=== PATIENT | male | born 1975 | race Caucasian/White ===

== ENCOUNTER 2017-03-14 12:20 | Emergency (ER) | payer SELFPAY ==
[~2017-03-14] VITALS: Wt 107.5 kg
[~2017-03-14 12:20] MED LIST: FLEXERIL10 MG PO; LISINOPRIL5 MG PO; MOTRIN800 MG PO; Motrin,Rufen800 MG PO; NKHM; NORFLEX100 MG PO; PREDNISONE10 MG PO; ULTRAM50 MG PO; VICODIN ES 7501 TAB PO
[2017-03-14] MEDS ORDERED: BACTRIM DS 8001 TA1 PO (13:06)
[2017-03-14] MEDS ORDERED: CEPHALEXIN500 M1 PO (13:06)
[2017-03-14] MEDS ORDERED: NORCO 5-325 TA1 EACH PO (13:06)
[2017-03-14] MEDS ORDERED: NAPROSYN500 MG PO (13:06)
== END 2017-03-14 13:25 | disposition home or self-care (01) ==
LOC: ED 12:20
DX: L02.411 Cutaneous abscess of right axilla (principal); Z98.890 Other specified postprocedural states; Z79.899 Other long term (current) drug therapy

== ENCOUNTER 2017-03-16 13:59 | Emergency (ER) | payer SELFPAY ==
[~2017-03-16] VITALS: Ht 180.3 cm; Wt 104.3 kg
[~2017-03-16 13:59] MED LIST changes: +BACTRIM DS 8001 TA1 PO; +CEPHALEXIN500 M1 PO; +NAPROSYN500 MG PO; +NORCO 5-325 TA1 EACH PO
== END 2017-03-16 15:35 | disposition home or self-care (01) ==
LOC: ED 13:59
DX: Z48.00 Encounter for change or removal of nonsurgical wound dressing (principal); L02.411 Cutaneous abscess of right axilla

== ENCOUNTER 2018-01-10 21:12 | Emergency (ER) | payer SELFPAY ==
[~2018-01-10] VITALS: Ht 180.3 cm; Wt 108.9 kg
[2018-01-10] MEDS ORDERED: MEDROL DOSEPAK4 MG PO (22:49)
[2018-01-10] MEDS ORDERED: CYCLOBENZAPRINE10 MG PO (22:49)
[2018-01-10] MEDS ORDERED: NAPROSYN500 MG PO (22:49)
== END 2018-01-10 23:45 | disposition home or self-care (01) ==
LOC: ED 21:12
DX: S39.012A Strain of muscle, fascia and tendon of lower back, initial encounter (principal); Z79.899 Other long term (current) drug therapy; X58.XXXA Exposure to other specified factors, initial encounter; Y93.89 Activity, other specified; Y92.89 Other specified places as the place of occurrence of the external cause; Y99.8 Other external cause status

== ENCOUNTER 2018-03-06 20:16 | Emergency (ER) | payer SELFPAY ==
[~2018-03-06] VITALS: Ht 180.3 cm; Wt 113.4 kg
[~2018-03-06 20:16] MED LIST changes: +CYCLOBENZAPRINE10 MG PO; +MEDROL DOSEPAK4 MG PO
[2018-03-06 20:59] LABS: BASO # 0.1 10*3/uL (0.0-0.1); BASO % 0.5 % (0.0-1.0); EOS # 0.1 10*3/uL (0.0-0.4); EOS % 0.7 % (1.0-4.0); HEMATOCRIT 42.5 % (42.0-52.0); HEMOGLOBIN 14.3 g/dl (14.0-18.0); LYMPH # 1.6 10*3/uL (1.3-4.4); LYMPH % 13.3 % (27.0-41.0); MEAN CELL VOLUME 87.1 fl (80.0-94.0); MEAN CORPUSCULAR HGB 29.3 pg (27.0-31.0); MEAN CORPUSCULAR HGB CONC 33.6 g/dl (33.0-37.0); MEAN PLATELET VOLUME 9.5 fl (9.6-12.3); MONO # 0.9 10*3/uL (0.1-1.0); NEUT # 8.9 10*3/uL (2.3-7.9); NEUT % 76.6 % (47.0-73.0); PLATELET COUNT AUTOMATED 248 10*3/uL (130-400); RED BLOOD COUNT 4.88 10*6/uL (4.50-5.90); RED CELL DISTRI WIDTH 12.5 % (0-14.5); WHITE BLOOD COUNT 11.6 10*3/uL (4.8-10.8)
[2018-03-06 21:15] LABS: ALBUMIN 3.9 gm/dl (3.1-4.5); ALKALINE PHOSPHATASE 67 U/L (45-117); BUN 19 mg/dl (7-24); CHLORIDE 100 mmol/L (98-107); CREATININE 1.09 mg/dL (0.70-1.30); POTASSIUM 3.9 mmol/L (3.5-5.1); SGOT/AST 14 IU/L (3-35); SGPT/ALT 24 U/L (12-78); SODIUM 138 mmol/L (136-145); TOTAL PROTEIN 7.2 gm/dL (6.4-8.2)
[2018-03-06 21:30] LABS: BILIRUBIN NEGATIVE (NEGATIVE); BLOOD 3+ (NEGATIVE); CLARITY CLEAR (CLEAR); COLOR YELLOW (YELLOW); GLUCOSE NEGATIVE (NEGATIVE); KETONE NEGATIVE (NEGATIVE); LEUKO ESTERASE NEGATIVE (NEGATIVE); NITRITE NEGATIVE (NEGATIVE); UROBILINOGEN 0.2 E.U./dl (0.2-1.0)
[2018-03-06 21:34] LABS: RBC TNTC rbc/hpf (0-2)
[2018-03-06 21:35] LABS: BACTERIA TRACE; EPITHELIAL CELLS 0-2; MUCOUS TRACE; WBC 0-2 wbc/hpf (0-5)
[2018-03-06] MEDS ORDERED: KETOROLAC10 MG PO (21:51)
== END 2018-03-06 22:35 | disposition home or self-care (01) ==
LOC: ED 20:16
PROVIDERS: Student in an Organized Health Care Education/Training Program
DX: N20.1 Calculus of ureter (principal); J02.9 Acute pharyngitis, unspecified; M54.9 Dorsalgia, unspecified; Z79.899 Other long term (current) drug therapy

== ENCOUNTER 2018-05-31 07:26 | Emergency (ER) | payer SELFPAY ==
[~2018-05-31] VITALS: Ht 180.3 cm; Wt 104.3 kg
[~2018-05-31 07:26] MED LIST changes: +KETOROLAC10 MG PO
[2018-05-31] MEDS ORDERED: PREDNISONE20 M1 PO (07:36)
[2018-05-31] MEDS ORDERED: LIDEX 0.05% CRE15 GM T (07:36)
== END 2018-05-31 07:47 | disposition home or self-care (01) ==
LOC: ED 07:26
DX: L23.7 Allergic contact dermatitis due to plants, except food (principal); Z79.899 Other long term (current) drug therapy

== ENCOUNTER 2018-06-25 03:34 | Emergency (ER) | payer SELFPAY ==
[~2018-06-25] VITALS: Ht 180.3 cm; Wt 106.6 kg
[~2018-06-25 03:34] MED LIST changes: +LIDEX 0.05% CRE15 GM T; +PREDNISONE20 M1 PO
[2018-06-25 03:54] LABS: BASO % 0.4 % (0.0-1.0); EOS # 0.3 10*3/uL (0.0-0.4); EOS % 2.9 % (1.0-4.0); HEMATOCRIT 43.7 % (42.0-52.0); HEMOGLOBIN 14.8 g/dl (14.0-18.0); LYMPH # 3.2 10*3/uL (1.3-4.4); LYMPH % 34.2 % (27.0-41.0); MEAN CELL VOLUME 86.2 fl (80.0-94.0); MEAN CORPUSCULAR HGB 29.2 pg (27.0-31.0); MEAN CORPUSCULAR HGB CONC 33.9 g/dl (33.0-37.0); MEAN PLATELET VOLUME 9.2 fl (9.6-12.3); MONO # 0.9 10*3/uL (0.1-1.0); MONO % 9.3 % (3.0-9.0); NEUT # 4.9 10*3/uL (2.3-7.9); NEUT % 52.9 % (47.0-73.0); PLATELET COUNT AUTOMATED 244 10*3/uL (130-400); RED BLOOD COUNT 5.07 10*6/uL (4.50-5.90); RED CELL DISTRI WIDTH 12.4 % (0-14.5); WHITE BLOOD COUNT 9.3 10*3/uL (4.8-10.8)
[2018-06-25 04:13] LABS: ALBUMIN 3.7 gm/dl (3.1-4.5); ALKALINE PHOSPHATASE 58 U/L (45-117); BUN 22 mg/dl (7-24); CHLORIDE 105 mmol/L (98-107); CREATININE 1.29 mg/dL (0.70-1.30); LIPASE 583 U/L (73-393); POTASSIUM 3.8 mmol/L (3.5-5.1); SGOT/AST 21 IU/L (3-35); SGPT/ALT 31 U/L (12-78); SODIUM 140 mmol/L (136-145)
[2018-06-25 05:10] LABS: BILIRUBIN NEGATIVE (NEGATIVE); BLOOD 3+ (NEGATIVE); CLARITY CLEAR (CLEAR); COLOR YELLOW (YELLOW); GLUCOSE NEGATIVE (NEGATIVE); KETONE NEGATIVE (NEGATIVE); LEUKO ESTERASE NEGATIVE (NEGATIVE); NITRITE NEGATIVE (NEGATIVE); SPECIFIC GRAVITY >= 1.030 (1.005-1.030); UROBILINOGEN 0.2 E.U./dl (0.2-1.0)
[2018-06-25 05:15] LABS: MUCOUS TRACE; RBC 16-20 rbc/hpf (0-2)
[2018-06-25 05:16] LABS: WBC 0-2 wbc/hpf (0-5)
[2018-06-25] MEDS ORDERED: ZOFRAN ODT4 MG SL (05:25)
[2018-06-25] MEDS ORDERED: FLOMAX0.4 MG PO (05:25)
[2018-06-25] MEDS ORDERED: PREDNISONE20 M1 PO (05:25)
[2018-06-25] MEDS ORDERED: Percocet 325 MG1 TAB PO (05:25)
== END 2018-06-25 06:20 | disposition home or self-care (01) ==
LOC: ED 03:34
PROVIDERS: Emergency Medicine Emergency Medical Services
DX: N20.1 Calculus of ureter (principal); R74.8 Abnormal levels of other serum enzymes; Z87.442 Personal history of urinary calculi; Z79.899 Other long term (current) drug therapy

== ENCOUNTER 2018-09-02 14:07 | Emergency (ER) | payer OTHER ==
[~2018-09-02] VITALS: Ht 180.3 cm; Wt 108.9 kg
[~2018-09-02 14:07] MED LIST changes: +FLOMAX0.4 MG PO; +Percocet 325 MG1 TAB PO; +ZOFRAN ODT4 MG SL
[2018-09-02 14:28] LABS: BILIRUBIN NEGATIVE (NEGATIVE); BLOOD TRACE-INTACT (NEGATIVE); CLARITY CLEAR (CLEAR); COLOR YELLOW (YELLOW); GLUCOSE NEGATIVE (NEGATIVE); KETONE NEGATIVE (NEGATIVE); LEUKO ESTERASE NEGATIVE (NEGATIVE); NITRITE NEGATIVE (NEGATIVE); UROBILINOGEN 0.2 E.U./dl (0.2-1.0)
[2018-09-02 14:39] LABS: BACTERIA 1+; MUCOUS 1+
[2018-09-02 14:40] LABS: RBC 21-30 rbc/hpf (0-2); WBC 0-2 wbc/hpf (0-5)
[2018-09-02 14:53] LABS: BASO % 0.3 % (0.0-1.0); EOS # 0.1 10*3/uL (0.0-0.4); EOS % 0.5 % (1.0-4.0); HEMATOCRIT 43.2 % (42.0-52.0); HEMOGLOBIN 14.8 g/dl (14.0-18.0); LYMPH # 1.2 10*3/uL (1.3-4.4); LYMPH % 10.7 % (27.0-41.0); MEAN CELL VOLUME 85.7 fl (80.0-94.0); MEAN CORPUSCULAR HGB 29.4 pg (27.0-31.0); MEAN CORPUSCULAR HGB CONC 34.3 g/dl (33.0-37.0); MEAN PLATELET VOLUME 9.4 fl (9.6-12.3); MONO # 0.9 10*3/uL (0.1-1.0); MONO % 7.7 % (3.0-9.0); NEUT # 9.3 10*3/uL (2.3-7.9); NEUT % 80.4 % (47.0-73.0); PLATELET COUNT AUTOMATED 258 10*3/uL (130-400); RED BLOOD COUNT 5.04 10*6/uL (4.50-5.90); RED CELL DISTRI WIDTH 12.7 % (0-14.5); WHITE BLOOD COUNT 11.6 10*3/uL (4.8-10.8)
[2018-09-02 15:08] LABS: ALKALINE PHOSPHATASE 74 U/L (45-117); BUN 21 mg/dl (7-24); CHLORIDE 103 mmol/L (98-107); CREATININE 1.33 mg/dL (0.70-1.30); POTASSIUM 4.3 mmol/L (3.5-5.1); SGOT/AST 18 IU/L (3-35); SGPT/ALT 29 U/L (12-78); SODIUM 137 mmol/L (136-145); TOTAL PROTEIN 7.1 gm/dL (6.4-8.2)
[2018-09-02] MEDS ORDERED: PERCOCET 5-3251 EACH PO (16:39)
== END 2018-09-02 17:21 | disposition home or self-care (01) ==
LOC: ED 14:07
PROVIDERS: Physician Assistant
DX: N20.0 Calculus of kidney (principal); Z87.442 Personal history of urinary calculi; Z79.899 Other long term (current) drug therapy

== ENCOUNTER → 2019-01-31 | Outpatient (CLI) | payer OTHER ==
[~2019-01-31] MED LIST changes: +PERCOCET 5-3251 EACH PO
== END | disposition home or self-care (01) ==
LOC: CT 01-26 14:00
DX: N20.1 Calculus of ureter (principal); M54.5 Low back pain; Z87.442 Personal history of urinary calculi

== ENCOUNTER 2020-08-09 12:53 | Emergency (ER) | payer OTHER ==
[~2020-08-09] VITALS: Ht 180.3 cm; Wt 113.4 kg
[2020-08-09] MEDS ORDERED: NORCO 5-325 TA1 EACH PO (15:54)
[2020-08-09] MEDS ORDERED: ROBAXIN-750750 MG PO (15:58)
== END 2020-08-09 16:04 | disposition home or self-care (01) ==
LOC: ED 12:53
DX: S20.221A Contusion of right back wall of thorax, initial encounter (principal); K21.9 Gastro-esophageal reflux disease without esophagitis; I10 Essential (primary) hypertension; Z79.899 Other long term (current) drug therapy; X58.XXXA Exposure to other specified factors, initial encounter; Y93.89 Activity, other specified; Y92.89 Other specified places as the place of occurrence of the external cause; Y99.8 Other external cause status

== ENCOUNTER 2022-03-06 04:29 | Emergency (ER) | payer OTHER ==
[~2022-03-06] VITALS: Ht 180.3 cm; Wt 113.4 kg
[~2022-03-06 04:29] MED LIST changes: +ROBAXIN-750750 MG PO
[2022-03-06 05:38] LABS: BILIRUBIN Negative (Negative); BLOOD Negative (Negative); CLARITY Clear (Clear); COLOR Yellow (Yellow); GLUCOSE Negative (Negative); KETONE Negative (Negative); LEUKO ESTERASE Negative (Negative); NITRITE Negative (Negative); PH 6.5 (4.5-8.0); SPECIFIC GRAVITY <= 1.005 (1.001-1.030); UROBILINOGEN 0.2 E.U./dl (0.0-1.0)
[2022-03-06 05:46] LABS: EPITHELIAL CELLS 0-2; WBC 0-2 wbc/hpf (0-5)
[2022-03-06 06:06] LABS: BASO # 0.1 10*3/uL (0.0-0.1); BASO % 0.5 % (0.0-1.0); EOS # 0.2 10*3/uL (0.0-0.4); EOS % 1.9 % (1.0-4.0); HEMATOCRIT 40.8 % (42.0-52.0); LYMPH # 2.2 10*3/uL (1.3-4.4); MEAN CELL VOLUME 84.1 fl (80.0-94.0); MEAN CORPUSCULAR HGB 29.7 pg (27.0-31.0); MEAN CORPUSCULAR HGB CONC 35.3 g/dl (33.0-37.0); MEAN PLATELET VOLUME 9.5 fl (9.6-12.3); MONO # 0.9 10*3/uL (0.1-1.0); NEUT # 6.2 10*3/uL (2.3-7.9); NEUT % 64.2 % (47.0-73.0); PLATELET COUNT AUTOMATED 227 10*3/uL (130-400); RED BLOOD COUNT 4.85 10*6/uL (4.50-5.90); RED CELL DISTRI WIDTH 12.3 % (0-14.5); WHITE BLOOD COUNT 9.6 10*3/uL (4.8-10.8)
[2022-03-06 06:15] LABS: ALKALINE PHOSPHATASE 73 U/L (45-117); BUN 24 mg/dl (7-24); CHLORIDE 99 mmol/L (98-107); CREATININE 1.05 mg/dL (0.70-1.30); POTASSIUM 3.4 mmol/L (3.5-5.1); SGOT/AST 30 IU/L (3-35); SGPT/ALT 42 U/L (12-78); SODIUM 133 mmol/L (136-145)
[2022-03-06] MEDS ORDERED: CYCLOBENZAPRINE10 MG PO (06:45)
[2022-03-06] MEDS ORDERED: HYDROCODONE-AC1 EAC1 PO (06:45)
[2022-03-06] MEDS ORDERED: AMOXICILLIN500 M2 PO (06:45)
== END 2022-03-06 06:56 | disposition home or self-care (01) ==
LOC: ED 04:29
PROVIDERS: Emergency Medicine
DX: M54.50 Low back pain, unspecified (principal); K08.89 Other specified disorders of teeth and supporting structures; I10 Essential (primary) hypertension; Z87.442 Personal history of urinary calculi; Z79.899 Other long term (current) drug therapy

== ENCOUNTER 2025-02-27 19:37 | Emergency (ER) | payer OTHER ==
[~2025-02-27] VITALS: Ht 177.8 cm; Wt 90.7 kg
[~2025-02-27 19:37] MED LIST changes: +AMOXICILLIN500 M2 PO; +HYDROCODONE-AC1 EAC1 PO
[2025-02-27] MEDS ORDERED: Acetaminophen/Hydrocodone 5 MG/325 MG TABLET PO ONE (20:05)
[2025-02-27] MEDS ORDERED: PENICILLIN V POTASSIUM 500 MG TAB PO ONE (20:05)
[2025-02-27] MEDS ORDERED: Ondansetron Hydrochloride 4 MG TAB SL ONE (20:05)
[2025-02-27] MEDS ORDERED: PENICILLIN VK500 MG PO (20:07)
== END 2025-02-27 20:19 | disposition home or self-care (01) ==
LOC: ED 19:37
DX: Z79.899 Other long term (current) drug therapy (principal); K02.9 Dental caries, unspecified

== ENCOUNTER 2025-09-12 01:12 | Emergency (ER) | payer OTHER ==
[~2025-09-12] VITALS: Ht 177.8 cm; Wt 99.8 kg
[~2025-09-12 01:12] MED LIST changes: +PENICILLIN VK500 MG PO
== END 2025-09-12 01:42 | disposition home or self-care (01) ==
LOC: ED 01:12
DX: K02.9 Dental caries, unspecified (principal); K08.89 Other specified disorders of teeth and supporting structures; I10 Essential (primary) hypertension; K21.9 Gastro-esophageal reflux disease without esophagitis